=== PATIENT | female | born 1955 | race Caucasian/White ===

== ENCOUNTER → 2018-06-06 11:03 | Outpatient (CLI) | payer OTHER, SELFPAY ==
--- NOTE | 2018-06-06 | DI.CT.S_ITS ---
PROCEDURE: CT SINUS SCREEN WO CON INDICATIONS: H/O OPEN NOSE FX, NEW ONSET PAIN TECHNIQUE: Noncontrast 3.0 mm axial images acquired from the frontal sinuses to the mid-sella, with coronal and sagittal reformats. For radiation dose reduction, the following was used: automated exposure control, adjustment of mA and/or kV according to patient size. COMPARISON: None. FINDINGS: Image quality: Excellent. Maxillary Sinuses: No bony remodeling or destruction. Sinuses are clear. Ethmoid Air Cells: No bony remodeling or destruction. Sinuses are clear. Sphenoid Sinuses: No bony remodeling or destruction. Sinuses are clear. Frontal Sinuses: No bony remodeling or destruction. Sinuses are clear. Ostiomeatal Complexes: Ostiomeatal complexes are patent. No Justin cells. Miscellaneous: Mild soft tissue swelling can be seen involving the bridge of the nose. Visualized intra-orbital contents are normal. No maral bullosa or paradoxical turbinate curvature. There is minimal rightward nasal septal deviation. IMPRESSION: Mild soft tissue swelling can be seen involving the bridge of the nose. No nasal bone fractures are seen. No active paranasal sinus disease is seen. Minimal rightward nasal septal deviation is seen. Dictated by: Javier Polanco M.D. on 06/06/2018 at 12:09 Approved by: Javier Polanco M.D. on 06/06/2018 at 12:10
== END ==
PROVIDERS: PCP Family Medicine; Visit Provider Physician Assistant
DX: J34.89 Other specified disorders of nose and nasal sinuses (principal)
CPT/HCPCS: 70486